=== PATIENT | female | born 1980 | race Two or more races ===

== ENCOUNTER 2016-05-31 16:26 | Emergency (ER) | payer OTHER, MEDICAID ==
[2016-05-31 17:52] LABS: HCG,QUALITATIVE URINE NEGATIVE
[2016-05-31] MEDS ORDERED: IBUPROFEN 600 MG TABLET ONE (18:40)
[2016-05-31] MEDS ORDERED: ACETAMINOPHEN 325 MG TABLET ONE (18:47)
== END 2016-05-31 18:57 | disposition home or self-care (01) ==
LOC: ED 16:26
DX: H92.01 Otalgia, right ear (principal); R00.2 Palpitations
CPT/HCPCS: 81025; 99283 ×2; 93005; A9270 ×2

== ENCOUNTER 2016-07-02 20:18 | Emergency (ER) | payer OTHER, MEDICAID ==
[2016-07-02] MEDS ORDERED: MAALOX/LIDO2%VISC/SIMETHICONE 40 ML BOT ONE (22:43)
[2016-07-02 22:44] LABS: BASO # 0.1 K/mm3 (0.0-0.2); BASO % 0.4 % (0.2-1.0); EOS # 0.1 (0.0-0.5); EOS % 1.1 % (0.9-2.9); HEMATOCRIT 36.6 % (37.0-47.0); IMM NEUT% 0.2 % (0-1); LYMPH # 4.2 (1.0-4.8); LYMPH % 33.3 % (15-45); MEAN CELL VOLUME 97.1 fl (81.0-99.0); MEAN CORPUSCULAR HEMOGLOBIN 31.8 pg (27.0-31.0); MEAN CORPUSCULAR HGB CONC 32.8 g/dl (33.0-37.0); MEAN PLATELET VOLUME 9.7 fl (7.4-10.4); MONO # 1.3 (0.0-0.8); MONO % 10.2 % (4-12); NEUT % 54.8 % (43-75); PLATELET COUNT 353 K/mm3 (130-400); RED CELL DISTRIBUTION WIDTH 12.4 % (11.5-14.5)
[2016-07-02 23:06] LABS: ALB/GLOB RATIO 1.6 (>1.0); ALBUMIN 4.4 gm/dL (3.5-5.7); CALCIUM 9.2 mg/dL (8.6-10.3)
[2016-07-02 23:19] LABS: SPECIFIC GRAVITY 1.025 (1.001-1.030); URINE BILIRUBIN NEGATIVE (NEGATIVE); URINE BLOOD 3+ (NEGATIVE); URINE GLUCOSE (UA) NEGATIVE (NEGATIVE); URINE LEUKOCYTE ESTERASE NEGATIVE (NEGATIVE); URINE NITRITE NEGATIVE (NEGATIVE); URINE PROTEIN NEGATIVE (NEGATIVE); URINE UROBILINOGEN NORMAL (0-1 mg/dl)
[2016-07-02 23:27] LABS: URINE APPEARANCE HAZY; URINE COLOR YELLOW
[2016-07-02 23:28] LABS: HCG,QUALITATIVE URINE NEGATIVE
[2016-07-02 23:32] LABS: URINE BACTERIA 0; URINE WBC 0-2 /hpf
--- NOTE | 2016-07-03 06:58 | US ---
EXAMINATION: Limited gallbladder ultrasound examination was performed. CLINICAL INDICATION: Right upper quadrant pain. COMPARISON: None FINDINGS: Gallbladder: 3.8 cm in length. Gallbladder is contracted. Patient is nonfasting. Cholelithiasis:None Gallbladder wall thickness: 4.4 millimeters. Pericholecystic fluid: Absent Common bile duct:Not dilated and measures 4 millimeters. Sonographic Garcia's sign: None elicited IMPRESSION: Contracted gallbladder without evidence of cholelithiasis or biliary obstruction. Findings were communicated by [facility] to the emergency department at: 2338 hours 07/02/2016
== END 2016-07-03 00:05 | disposition home or self-care (01) ==
LOC: ED 20:18
DX: R10.13 Epigastric pain (principal); Z79.899 Other long term (current) drug therapy
CPT/HCPCS: 83690; 81025; 85025; 80053; 81001; 76705; 99284; 93005; 99283; A9270

== ENCOUNTER 2016-07-09 13:27 | Emergency (ER) | payer OTHER, MEDICAID ==
[2016-07-09 16:00] LABS: ABSOLUTE NEUTROPHIL COUNT 6.6 K/mm3 (1.8-7.7); BASO # 0.1 K/mm3 (0.0-0.2); BASO % 0.5 % (0.2-1.0); EOS # 0.1 (0.0-0.5); EOS % 0.5 % (0.9-2.9); HEMATOCRIT 40.9 % (37.0-47.0); HEMOGLOBIN 13.9 gm/l (12.0-16.0); IMM NEUT% 0.2 % (0-1); LYMPH # 3.4 (1.0-4.8); LYMPH % 30.4 % (15-45); MEAN CELL VOLUME 94.9 fl (81.0-99.0); MEAN CORPUSCULAR HEMOGLOBIN 32.3 pg (27.0-31.0); MEAN PLATELET VOLUME 9.6 fl (7.4-10.4); MONO % 9.4 % (4-12); PLATELET COUNT 451 K/mm3 (130-400); RED CELL DISTRIBUTION WIDTH 12.2 % (11.5-14.5)
[2016-07-09 16:01] LABS: HCG,QUALITATIVE URINE NEGATIVE; URINE BILIRUBIN NEGATIVE (NEGATIVE); URINE BLOOD 3+ (NEGATIVE); URINE GLUCOSE (UA) NEGATIVE (NEGATIVE); URINE LEUKOCYTE ESTERASE NEGATIVE (NEGATIVE); URINE NITRITE NEGATIVE (NEGATIVE); URINE PROTEIN NEGATIVE (NEGATIVE); URINE UROBILINOGEN NORMAL (0-1 mg/dl)
[2016-07-09 16:03] LABS: URINE APPEARANCE CLEAR; URINE COLOR YELLOW
[2016-07-09 16:08] LABS: URINE EPITHELIAL CELLS 0-1 /hpf; URINE WBC NEG /hpf
[2016-07-09 16:09] LABS: URINE BACTERIA RARE
[2016-07-09 16:17] LABS: ALB/GLOB RATIO 1.4 (>1.0); ALBUMIN 4.6 gm/dL (3.5-5.7); CALCIUM 9.6 mg/dL (8.6-10.3); MAGNESIUM 2.2 mg/dL (1.9-2.7)
== END 2016-07-09 16:47 | disposition home or self-care (01) ==
LOC: ED 13:27
DX: R20.9 Unspecified disturbances of skin sensation (principal); R53.1 Weakness; R42 Dizziness and giddiness; R11.0 Nausea